=== PATIENT | male | born 1930 | race Hispanic/Latino ===

== ENCOUNTER 2016-09-30 22:42 | Emergency (ER) | payer MEDICARE, OTHER ==
[~2016-09-30] VITALS: Ht 157.5 cm; Wt 78.9 kg
== END 2016-10-01 01:21 | disposition home or self-care (01) ==
LOC: ED 22:42
DX: R60.0 Localized edema (principal); Z86.59 Personal history of other mental and behavioral disorders
CPT/HCPCS: 71010; 80053; 83880; 85025; 99284